=== PATIENT | male | born 1955 | race African-American/Black ===

== ENCOUNTER 2022-02-25 09:31 | Inpatient (IN) | payer OTHER ==
[2022-02-25 10:16] VITALS: BMI 25.7
[2022-02-25] MEDS ORDERED: DICYCLOMINE HCL 10 MG CAPSULE PO PRN (11:00)
[2022-02-25] MEDS ORDERED: LOPERAMIDE HCL 2 MG CAPSULE PO PRN (11:00)
[2022-02-25] MEDS ORDERED: ONDANSETRON *ODT* 4 MG TABLET SL PRN (11:00)
[2022-02-25] MEDS ORDERED: METHOCARBAMOL 500 MG TABLET PO PRN (11:00)
[2022-02-25] MEDS ORDERED: NALOXONE HCL (KLOXXADO) 8 MG SPRAY NS PRN (11:00)
[2022-02-25] MEDS ORDERED: MAGNESIUM HYDROX 2400MG/30ML ORAL SUSPENSION 30 ML CUP PO PRN (11:00)
[2022-02-25] MEDS ORDERED: IBUPROFEN 400 MG TABLET (FP) PO PRN (11:00)
[2022-02-25] MEDS ORDERED: BISMUTH SUBSALICYLATE 262 MG/15 ML BTL PO PRN (11:00)
[2022-02-25] MEDS ORDERED: ACETAMINOPHEN 325 MG TABLET (FP) PO PRN ×2 (11:00)
[2022-02-25] MEDS ORDERED: MAGNESIUM CITRATE 300 ML BOTTLE PO PRN (11:00)
[2022-02-25] MEDS ORDERED: MAG HYDROX/AL HYDROX/SIMETH 30 ML UNIT-DOSE CUP PO PRN (11:00)
[2022-02-25] MEDS ORDERED: BENZOCAINE/MENTHOL (CHLORASEPTIC ) LOZENGE MM PRN (11:00)
[2022-02-25] MEDS ORDERED: IBUPROFEN 600 MG TABLET (FP) PO PRN (11:00)
[2022-02-25] MEDS: PRENATAL VITAMINS W/ FOLIC ACID TABLET (FP) PO SCH (12:10)
[2022-02-25] MEDS: hydrOXYzine PAMOATE 25 MG CAPSULE (FP) PO SCH ×3 (13:08→22:35)
[2022-02-25 15:37] LABS: HEMATOCRIT 37.9 % (35.4-49); HEMOGLOBIN 13.3 GM/dL (11.7-16.9); MCH 31.9 pg (25.7-33.7); MCHC 35.1 g/dl (32.0-35.9); MEAN CELL VOLUME 90.7 fl (80-96); MEAN PLT VOLUME 7.9 fl (7.5-11.1); PLATELET COUNT 302 10^3/uL (134-434); RBC 4.18 M/mm3 (4.00-5.60); RDW 14.8 % (11.9-15.9); WHITE BLOOD COUNT 6.5 K/mm3 (4.0-10.0)
[2022-02-25 15:43] LABS: ALBUMIN 3.6 g/dl (3.4-5.0); BLOOD UREA NITROGEN 9.6 mg/dL (7-18); CALCIUM 9.1 mg/dL (8.5-10.1)
[2022-02-25 15:46] LABS: CREATININE 0.8 mg/dL (0.55-1.3)
[2022-02-25 15:48] LABS: BILIRUBIN,TOTAL 0.4 mg/dL (0.2-1); TOT PROT 7.8 g/dl (6.4-8.2)
[2022-02-25] MEDS: NICOTINE 10 MG CARTRIDGE (INHALER) IH PRN (17:41)
[2022-02-25] MEDS: THIAMINE HCL 100 MG TABLET (FP) PO SCH (22:35)
[2022-02-25] MEDS: MELATONIN 5 MG TABLETS PO SCH (22:35)
[2022-02-26] MEDS: hydrOXYzine PAMOATE 25 MG CAPSULE (FP) PO SCH ×5 (07:12→22:54)
[2022-02-26] MEDS ORDERED: LORazepam 1 MG TABLET PO PRN (10:22)
[2022-02-26] MEDS: PRENATAL VITAMINS W/ FOLIC ACID TABLET (FP) PO SCH (10:35)
[2022-02-26] MEDS: NIFEdipine E.R 60 MG TABLET PO SCH (10:35)
[2022-02-26] MEDS: LORazepam 2 MG TABLET PO SCH ×3 (10:37→22:53)
[2022-02-26] MEDS: NICOTINE 10 MG CARTRIDGE (INHALER) IH PRN (10:40)
[2022-02-26] MEDS: MELATONIN 5 MG TABLETS PO SCH (22:53)
[2022-02-26] MEDS: THIAMINE HCL 100 MG TABLET (FP) PO SCH (22:53)
[2022-02-27] MEDS: LORazepam 2 MG TABLET PO SCH ×4 (06:30→23:07)
[2022-02-27] MEDS: hydrOXYzine PAMOATE 25 MG CAPSULE (FP) PO SCH ×5 (06:31→23:07)
[2022-02-27] MEDS: NICOTINE 10 MG CARTRIDGE (INHALER) IH PRN (09:21)
[2022-02-27] MEDS: NIFEdipine E.R 60 MG TABLET PO SCH (10:25)
[2022-02-27] MEDS: PRENATAL VITAMINS W/ FOLIC ACID TABLET (FP) PO SCH (10:25)
[2022-02-27] MEDS: THIAMINE HCL 100 MG TABLET (FP) PO SCH (23:07)
[2022-02-27] MEDS: MELATONIN 5 MG TABLETS PO SCH (23:07)
[2022-02-28] MEDS: hydrOXYzine PAMOATE 25 MG CAPSULE (FP) PO SCH ×5 (06:31→23:17)
[2022-02-28] MEDS: LORazepam 1 MG TABLET PO SCH ×4 (06:31→23:23)
[2022-02-28] MEDS: PRENATAL VITAMINS W/ FOLIC ACID TABLET (FP) PO SCH (10:14)
[2022-02-28] MEDS: NIFEdipine E.R 60 MG TABLET PO SCH (10:14)
[2022-02-28] MEDS: THIAMINE HCL 100 MG TABLET (FP) PO SCH (23:17)
[2022-02-28] MEDS: MELATONIN 5 MG TABLETS PO SCH (23:17)
[2022-03-01] MEDS ORDERED: LORazepam 0.5 MG TABLET PO PRN
[2022-03-01] MEDS ORDERED: LORazepam 0.5 MG TABLET PO SCH (05:00)
[2022-03-01] MEDS: hydrOXYzine PAMOATE 25 MG CAPSULE (FP) PO SCH ×2 (05:42→09:27)
[2022-03-01 09:22] VITALS: BP 148/75; PULSE 87; RESP 17; TEMP 97.3
[2022-03-01] MEDS: PRENATAL VITAMINS W/ FOLIC ACID TABLET (FP) PO SCH (09:23)
[2022-03-01] MEDS: NIFEdipine E.R 60 MG TABLET PO SCH (09:23)
[2022-03-02] MEDS ORDERED: LORazepam 0.5 MG TABLET PO ONE (05:00)
== END 2022-03-01 09:25 | disposition home or self-care (01) | DRG 774 ==
LOC: YASAS 09:31 → Y3N 11:08 → Y6N 11:17
PROVIDERS: ADMIT Allergy & Immunology; ATTEND Surgery
PROC: HZ2ZZZZ Detoxification Services for Substance Abuse Treatment (ICD-10-PCS; principal; 2022-02-25)
DX: F10.230 Alcohol dependence with withdrawal, uncomplicated (principal); F14.20 Cocaine dependence, uncomplicated; F12.20 Cannabis dependence, uncomplicated; F17.210 Nicotine dependence, cigarettes, uncomplicated; F19.282 Other psychoactive substance dependence with psychoactive substance-induced sleep disorder; F19.24 Other psychoactive substance dependence with psychoactive substance-induced mood disorder; F31.9 Bipolar disorder, unspecified; F41.9 Anxiety disorder, unspecified; I10 Essential (primary) hypertension; J45.909 Unspecified asthma, uncomplicated; Z56.0 Unemployment, unspecified; Z59.00 Homelessness unspecified
CPT/HCPCS: 36415; 71046-TC-FY; 80053; 85027; 86780; 93005; 93010; C9803-CS; U0003; U0005

== ENCOUNTER 2022-06-27 14:51 | Inpatient (IN) | payer OTHER ==
[2022-06-27 16:43] VITALS: BMI 23.1
[2022-06-27] MEDS ORDERED: DICYCLOMINE HCL 10 MG CAPSULE PO PRN (18:50)
[2022-06-27] MEDS ORDERED: MAGNESIUM HYDROX 2400MG/30ML ORAL SUSPENSION 30 ML CUP PO PRN (18:50)
[2022-06-27] MEDS ORDERED: LOPERAMIDE HCL 2 MG CAPSULE PO PRN (18:50)
[2022-06-27] MEDS ORDERED: IBUPROFEN 400 MG TABLET (FP) PO PRN (18:50)
[2022-06-27] MEDS ORDERED: BENZOCAINE/MENTHOL (CHLORASEPTIC ) LOZENGE MM PRN (18:50)
[2022-06-27] MEDS ORDERED: MAG HYDROX/AL HYDROX/SIMETH 30 ML UNIT-DOSE CUP PO PRN (18:50)
[2022-06-27] MEDS ORDERED: P-EPHED 60MG/TRIPROLIDI 2.5MG TABLET PO PRN (18:50)
[2022-06-27] MEDS ORDERED: BISMUTH SUBSALICYLATE 524 MG/30 ML PO PRN (18:50)
[2022-06-27] MEDS ORDERED: IBUPROFEN 600 MG TABLET (FP) PO PRN (18:50)
[2022-06-27] MEDS ORDERED: ONDANSETRON *ODT* 4 MG TABLET SL PRN (18:50)
[2022-06-27] MEDS ORDERED: guaiFENesin 200 MG/10 ML 10 ML UNIT-DOSE CUPS PO PRN (18:50)
[2022-06-27] MEDS ORDERED: MELATONIN 5 MG TABLETS PO PRN (18:50)
[2022-06-27] MEDS ORDERED: POLYETHYLENE GLYCOL (HEALTHYLAX) 3350 17 GM PACKET PO PRN (18:50)
[2022-06-27] MEDS ORDERED: NICOTINE POLACRILEX 2 MG GUM BUC PRN (18:50)
[2022-06-27] MEDS ORDERED: ACETAMINOPHEN 325 MG TABLET (FP) PO PRN ×2 (18:50)
[2022-06-27] MEDS ORDERED: diazePAM 5 MG TABLET PO PRN (18:52)
[2022-06-27] MEDS: THIAMINE HCL 100 MG TABLET (FP) PO SCH (22:54)
[2022-06-28] MEDS: NIFEdipine E.R. 30 MG TABLET PO SCH (07:44)
[2022-06-28] MEDS ORDERED: LORazepam 1 MG TABLET PO PRN (09:47)
[2022-06-28] MEDS ORDERED: NIFEdipine E.R 60 MG TABLET PO SCH (10:00)
[2022-06-28] MEDS: LORazepam 2 MG TABLET PO SCH ×3 (10:10→22:57)
[2022-06-28] MEDS: PRENATAL VITAMINS W/ FOLIC ACID TABLET (FP) PO SCH (10:10)
[2022-06-28 11:26] LABS: HEMATOCRIT 37.8 % (35.4-49); HEMOGLOBIN 12.9 GM/dL (11.7-16.9); MCH 30.8 pg (25.7-33.7); MEAN CELL VOLUME 90.7 fl (80-96); MEAN PLT VOLUME 7.6 fl (7.5-11.1); PLATELET COUNT 285 10^3/uL (134-434); RBC 4.17 M/mm3 (4.00-5.60); RDW 13.6 % (11.9-15.9); WHITE BLOOD COUNT 4.8 K/mm3 (4.0-10.0)
[2022-06-28 12:37] LABS: CALCIUM 8.8 mg/dL (8.5-10.1)
[2022-06-28 12:38] LABS: ALBUMIN 3.2 g/dl (3.4-5.0); BLOOD UREA NITROGEN 7.5 mg/dL (7-18)
[2022-06-28 12:41] LABS: CREATININE 0.9 mg/dL (0.55-1.3)
[2022-06-28 12:42] LABS: TOT PROT 7.5 g/dl (6.4-8.2)
[2022-06-28 12:43] LABS: BILIRUBIN,TOTAL 0.8 mg/dL (0.2-1)
[2022-06-28] MEDS: THIAMINE HCL 100 MG TABLET (FP) PO SCH (22:57)
[2022-06-29] MEDS: LORazepam 2 MG TABLET PO SCH ×4 (06:15→23:37)
[2022-06-29] MEDS: NIFEdipine E.R. 30 MG TABLET PO SCH (10:11)
[2022-06-29] MEDS: PRENATAL VITAMINS W/ FOLIC ACID TABLET (FP) PO SCH (10:11)
[2022-06-29] MEDS: THIAMINE HCL 100 MG TABLET (FP) PO SCH (23:37)
[2022-06-30] MEDS: LORazepam 1 MG TABLET PO SCH ×4 (06:01→22:47)
[2022-06-30] MEDS: NIFEdipine E.R. 30 MG TABLET PO SCH (10:10)
[2022-06-30] MEDS: PRENATAL VITAMINS W/ FOLIC ACID TABLET (FP) PO SCH (10:10)
[2022-06-30] MEDS: THIAMINE HCL 100 MG TABLET (FP) PO SCH (22:47)
[2022-07-01] MEDS ORDERED: LORazepam 0.5 MG TABLET PO PRN
[2022-07-01] MEDS ORDERED: LORazepam 0.5 MG TABLET PO SCH (05:00)
[2022-07-01 09:44] VITALS: BP 161/79; PULSE 85; RESP 16; TEMP 97
[2022-07-02] MEDS ORDERED: LORazepam 0.5 MG TABLET PO ONE (05:00)
== END 2022-07-01 10:06 | disposition other institution (70) | DRG 774 ==
LOC: YASAS 14:51 → Y3N 18:53 → UNDOADMIN 18:53
PROVIDERS: ADMIT Allergy & Immunology; ATTEND Family Medicine
PROC: HZ2ZZZZ Detoxification Services for Substance Abuse Treatment (ICD-10-PCS; principal; 2022-06-27)
DX: F10.230 Alcohol dependence with withdrawal, uncomplicated (principal); F14.20 Cocaine dependence, uncomplicated; F17.210 Nicotine dependence, cigarettes, uncomplicated; F31.9 Bipolar disorder, unspecified; F41.9 Anxiety disorder, unspecified; I10 Essential (primary) hypertension; J45.909 Unspecified asthma, uncomplicated
CPT/HCPCS: 36415; 80053; 85027; 86780; C9803-CS; U0003; U0005